=== PATIENT | male | born 1995 | race Caucasian/White ===

== ENCOUNTER 2017-05-07 03:56 | Emergency (ER) | payer BC, OTHER ==
[2017-05-07 04:06] VITALS: BP 140/92; PULSE 94; RESP 18; TEMP 97.9; O2SAT 98
--- NOTE | 2017-05-07 04:19 | ED PDOC ---
Arrival/HPI - General Chief Complaint: ENT Problem Time Seen by Provider: 05/07/17 04:08 - History of Present Illness Narrative History of Present Illness (Text): 05/07/17 04:16 This patient is a 21yo M who is coming to the ER for a 1d history of L Ear pain. Patient states that he has had ear infections in the past that feel exactly like this. Admits to mild fever at home and pain in the ear especially when it is manipulated. Denies pus/discharge from ear. Denies swimming in pool recently. Denies recent travel. Denies changes in vision, voice/hot potato voice /cough/throat pain, neck pain, SOB, abdominal pain, N/V/D, dysuria/freq/urg, or lower extremity pain/swelling. Former smoker, quit 8 months ago. Denies all other drug use. (Ozzie White) Past Medical History - Provider Review Nursing Documentation Reviewed: Yes - Travel History Have you recently traveled outside [place] w/in the past 3 mons?: No - Past History Past History: No Previous - Infectious Disease Hx of Infectious Diseases: None - Tetanus Immunization Tetanus Immunization: Unknown - Cardiac Hx Cardiac Disorders: Yes Hx Cardiac Arrhythmia: Yes - Psychiatric Hx Substance Use: No - Anesthesia Hx Anesthesia: No Hx Anesthesia Reactions: No Hx Malignant Hyperthermia: No Family/Social History - Physician Review Nursing Documentation Reviewed: Yes Family/Social History: No Known Family HX Smoking Status: Former Smoker Hx Alcohol Use: Yes Frequency of alcohol use: Socially Hx Substance Use: No Allergies/Home Meds Allergies/Adverse Reactions: Allergies No Known Allergies Allergy (Verified 03/05/16 19:58) Review of Systems - Review of Systems Constitutional: absent: Fatigue, Weight Change Eyes: absent: Vision Changes ENT: Hearing Changes (in left ear), TMJ Pain. absent: Voice Changes, Sore Throat, Rhinorrhea, Epistaxis, Sinus Congestion Respiratory: absent: SOB, Cough Cardiovascular: absent: Chest Pain, Palpitations Gastrointestinal: absent: Abdominal Pain Genitourinary Male: absent: Dysuria, Frequency Musculoskeletal: absent: Arthralgias, Back Pain Skin: absent: Rash, Pruritis Neurological: absent: Headache, Dizziness Endocrine: absent: Diaphoresis, Polyuria Hemo/Lymphatic: absent: Adenopathy, Easy Bleeding Psychiatric: absent: Anxiety, Depression Physical Exam Temperature: Afebrile Blood Pressure: Normal Pulse: Regular Respiratory Rate: Normal Appearance: Positive for: Well-Appearing, Non-Toxic Pain Distress: None Mental Status: Positive for: Alert and Oriented X 3 - Systems Exam Head: Present: Atraumatic, Normocephalic Pupils: Present: PERRL Extroacular Muscles: Present: EOMI Conjunctiva: Present: Normal Ears: Present: Erythema (on left ), TM Bulging (on left). No: TM Perf Mouth: Present: Moist Mucous Membranes, Dry, Normal Tounge Pharnyx: Present: Normal. No: ERYTHEMA, EXUDATE, TONSILS ENLARGED, Peritonsilar Swelling, Uvular Deviation, Muffled/Hoarse Voice, Strider, Soft Palate/Uvular Edema Nose (Internal): Present: Normal Inspection Neck: Present: Normal Range of Motion. No: Meningeal Signs Respiratory/Chest: Present: Clear to Auscultation, Good Air Exchange. No: Respiratory Distress, Accessory Muscle Use, Wheezes, Decreased Breath Sounds Cardiovascular: Present: Regular Rate and Rhythm, Normal S1, S2. No: Murmurs Abdomen: Present: Normal Bowel Sounds. No: Tenderness, Distention Back: Present: Normal Inspection. No: CVA Tenderness Upper Extremity: Present: Normal Inspection, Normal ROM. No: Cyanosis, Edema Lower Extremity: Present: Normal Inspection. No: Edema, CALF TENDERNESS Neurological: Present: GCS=15, CN II-XII Intact, Speech Normal Skin: Present: Warm Psychiatric: Present: Alert, Oriented x 3 Vital Signs Temp Pulse Resp BP Pulse Ox 05/07/17 04:06 97.9 F 94 H 18 140/92 H 98 Medical Decision Making ED Course and Treatment: 05/07/17 04:20 Pt w/ normal VSS; L ear eythema w/ bulging TM DD: Otitis Media vs Effusion vs otitis externa (unlikely given no discharge) Plan -Tylenol -Ibuprofen -Amoxicillin Dispo and Reassess 05/07/17 04:24 Will send home with Amoxicillin 875 TID for 7d Pt to f/u with PMD Dr. Gracia in one week If symptoms get worse, patient cannot swallow/throat pain/swelling told to come back to ER (Ozzie White) Impression: Pt seen and evaluated with biomedical field service engineer. Pt presented to the Emergency department complaining of left ear pain. Aware and agree with HPI, clinical findings, plan, and management. Plan: -- Amoxil -- Tylenol -- Motrin -- Reassess and disposition (Harvinder Sears) - Medication Orders Current Medication Orders: Discontinued Medications Acetaminophen (Tylenol 325mg Tab) 975 mg PO STAT STA Stop: 05/07/17 04:15 Last Admin: 05/07/17 04:23 Dose: 975 mg MAR Pain/Vitals Document 05/07/17 04:23 SS (Rec: 05/07/17 04:23 SS [id number]) Pain Reassessment Is This A Pain ReAssessment? No Presence of Pain Presence of Pain Yes Amoxicillin (Amoxil 500 Mg Cap) 500 mg PO STAT STA PRN Reason: Protocol Stop: 05/07/17 04:16 Last Admin: 05/07/17 04:23 Dose: 500 mg Ibuprofen (Motrin Tab) 600 mg PO STAT STA Stop: 05/07/17 04:15 Last Admin: 05/07/17 04:23 Dose: 600 mg MAR Pain/Vitals Document 05/07/17 04:23 SS (Rec: 05/07/17 04:23 SS [id number]) Pain Reassessment Is This A Pain ReAssessment? No Sleep Is patient sleeping during reassessment? No Presence of Pain Presence of Pain Yes Pain Scale Used Pain Scale Used Numeric Location Left, Right or Bilateral Left Pain Location Body Site Ear Intensity 8 Scale Used Numeric Disposition/Present on Arrival - Present on Arrival Any Indicators Present on Arrival: No History of DVT/PE: No History of Uncontrolled Diabetes: No Urinary Catheter: No History of Decub. Ulcer: No History Surgical Site Infection Following: None - Disposition Have Diagnosis and Disposition been Completed?: Yes Disposition Time: 04:25 Patient Plan: Discharge - Disposition Diagnosis: Otitis media Disposition: HOME/ ROUTINE Condition: FAIR Discharge Instructions (ExitCare): Otitis Media (ED) Additional Instructions: Please take your antibiotics as prescribed; Amoxicillin three times per day for 7 days. Do not miss doses and finish until all pills are taken You can take tylenol and ibuprofen, alternating, for pain/fevers as indicated on the bottles over the counter please follow up with your PMD within the week If you have trouble swallowing, muffled speech, or excessive drooling/trouble swallowing secretions please come back to the ED. It was a pleasure taking care of you, please feel better. Prescriptions: Amoxicillin 875 mg PO TID 7 Days #21 tablet Forms: [employer] (Georgian)
== END 2017-05-07 04:43 | disposition home or self-care (01) ==
LOC: ED 03:56
DX: H66.92 Otitis media, unspecified, left ear (principal); Z87.891 Personal history of nicotine dependence

== ENCOUNTER 2017-05-07 22:29 | Emergency (ER) | payer OTHER ==
[2017-05-07 22:53] VITALS: BMI 38.4
[2017-05-07] MEDS ORDERED: Sodium Chloride 0.9% 1,000 ML IV STA (23:29)
[2017-05-07] MEDS ORDERED: cefTRIAXone 1 gm 1 GM/100 ML BAG IVPB STA (23:33)
--- NOTE | 2017-05-07 23:38 | ED PDOC ---
Arrival/HPI - General Chief Complaint: ENT Problem Time Seen by Provider: 05/07/17 23:26 - History of Present Illness Narrative History of Present Illness (Text): 05/07/17 23:34 This patient was seen by myself yesterday for the same problem, he is a 21yo M who is coming to the ER for a 2d history of L Ear pain, now with pain in his neck and trouble swallowing. Admits to mild fever at home and pain in the ear especially when it is manipulated, and chills. Denies pus/discharge from ear. Denies swimming in pool recently. Denies recent travel. Denies changes in vision , voice/hot potato voice/cough/throat pain, SOB, abdominal pain, N/V/D, dysuria/ freq/urg, or lower extremity pain/swelling. Former smoker, quit 8 months ago. Denies all other drug use. (Ozzie White) Past Medical History - Past History Past History: No Previous - Infectious Disease Hx of Infectious Diseases: None - Tetanus Immunization Tetanus Immunization: Unknown - Cardiac Hx Cardiac Disorders: Yes Hx Cardiac Arrhythmia: Yes - Pulmonary Hx Respiratory Disorders: No - Neurological Hx Neurological Disorder: No - HEENT Hx HEENT Disorder: No - Renal Hx Renal Disorder: No - Endocrine/Metabolic Hx Endocrine Disorders: No - Hematological/Oncological Hx Blood Disorders: No - Integumentary Hx Dermatological Disorder: No - Musculoskeletal/Rheumatological Hx Musculoskeletal Disorders: No - Gastrointestinal Hx Gastrointestinal Disorders: No - Genitourinary/Gynecological Hx Genitourinary Disorders: No - Psychiatric Hx Psychophysiologic Disorder: No Hx Substance Use: No - Anesthesia Hx Anesthesia: No Hx Anesthesia Reactions: No Hx Malignant Hyperthermia: No Family/Social History - Physician Review Nursing Documentation Reviewed: Yes Family/Social History: No Known Family HX Smoking Status: Former Smoker Hx Alcohol Use: Yes Hx Substance Use: No Allergies/Home Meds Allergies/Adverse Reactions: Allergies almond Allergy (Verified 05/07/17 22:51) ANAPHYLAXIS Review of Systems - Review of Systems Constitutional: absent: Fatigue, Weight Change Eyes: absent: Vision Changes ENT: Hearing Changes, TMJ Pain. absent: Tinnitus, Voice Changes, Sore Throat, Rhinorrhea, Epistaxis Respiratory: absent: SOB, Cough, Sputum Cardiovascular: absent: Chest Pain, Palpitations Gastrointestinal: absent: Abdominal Pain Genitourinary Male: absent: Dysuria, Frequency Musculoskeletal: absent: Arthralgias, Back Pain Skin: absent: Rash, Pruritis Neurological: Headache. absent: Dizziness Endocrine: absent: Diaphoresis Hemo/Lymphatic: absent: Adenopathy Psychiatric: absent: Anxiety, Depression Physical Exam Temperature: Febrile Blood Pressure: Normal Pulse: Tachycardic Respiratory Rate: Normal Appearance: Positive for: Ill-Appearing Pain Distress: Mild Mental Status: Positive for: Alert and Oriented X 3 - Systems Exam Head: Present: Atraumatic Pupils: Present: PERRL Extroacular Muscles: Present: EOMI Conjunctiva: Present: Normal Mouth: Present: Moist Mucous Membranes Pharnyx: No: ERYTHEMA, EXUDATE, TONSILS ENLARGED, Peritonsilar Swelling, Uvular Deviation, Muffled/Hoarse Voice, Strider, Soft Palate/Uvular Edema Neck: Present: Normal Range of Motion, Lymphadenopathy (large painful submandibular lymph node that is warm and hard to touch), Trachea Midline Respiratory/Chest: Present: Clear to Auscultation, Good Air Exchange Cardiovascular: Present: Regular Rate and Rhythm, Tachycardic. No: Murmurs, Normal S1, S2 Abdomen: No: Tenderness, Distention Upper Extremity: Present: Normal Inspection. No: Cyanosis, Edema Lower Extremity: Present: Normal Inspection Neurological: Present: GCS=15 Skin: Present: Warm Psychiatric: Present: Alert, Oriented x 3 Vital Signs Temp Pulse Resp BP Pulse Ox 05/08/17 01:58 99.9 F H 05/08/17 00:32 102.8 F H 05/08/17 00:20 102.8 F H 96 H 20 144/75 100 05/07/17 22:52 99 F 120 H 18 132/78 98 Medical Decision Making ED Course and Treatment: Patient Seen With Resident: In agreement with resident note which contains more details about the patient. Patient was seen and evaluated with resident. Came up with plan and treatment together. (Bee Conn) 05/07/17 23:38 DD: peritonsillar abscess vs retropharyngeal abscess vs viral sialadenitis vs middle ear infection vs mastoiditis CBC CMP VBG Lactate Blood cultures Ceftriaxone 1g 1L NS; will give one more after bag is done CT Neck/Mastoid w/ contrast to evaluate for abscess dispo and reassess 05/08/17 00:37 Lact 1.2 Fever 102 in ER 1L NS extra hanging Pending CT scan 05/08/17 01:09 Will give decadron 10mg IV Pending CT scan No elevated WBC but predom neutrophilia 05/08/17 01:12 IMPRESSION: 1. No acute findings. 2. Non-acute findings are described above. CT scan only showed mildly enlarged lymph nodes no peritonsillar abscess seen Will send the patient home on Augmentin 875-125 for 10 days patient states he does not feel like he has any trouble swallowing, and fevers/ chills have subsided advised patient to throw out amoxicillin that he filled yesterday and take augmentin; and that he received ceftriaxone here in the ED today The patient is stable for d/c as per Dr. Conn 05/08/17 02:12 (Ozzie White) - Lab Interpretations Lab Results: 05/07/17 23:40 05/07/17 23:40 Lab Results 05/07/17 23:40: Sodium 142, Chloride 105, Potassium 4.3, Carbon Dioxide 25, Anion Gap 16, BUN 13, Creatinine 0.7 L, Est GFR ( Amer) > 60, Est GFR ( Non-Af Amer) > 60, Random Glucose 86, Calcium 9.2, Total Bilirubin 0.6, AST 37, ALT 63 H, Alkaline Phosphatase 49, Total Protein 7.6, Albumin 4.2, Globulin 3.5 , Albumin/Globulin Ratio 1.2 05/07/17 23:40: pO2 43, VBG pH 7.38, VBG pCO2 48.0, VBG HCO3 28.4 H, VBG Total CO2 29.9 H, VBG O2 Sat (Calc) 82.5 H, VBG Base Excess 2.5 H, VBG Potassium 4.2, Sodium 139.0, Chloride 106.0, Glucose 86, Lactate 1.2, FiO2 21.0, Venous Blood Potassium 4.2 05/07/17 23:40: WBC 8.7, RBC 4.84, Hgb 14.2, Hct 42.1, MCV 87.0, MCH 29.3, MCHC 33.7, RDW 12.7, Plt Count 253, MPV 9.9, Gran % 76.8 H, Lymph % (Auto) 15.9 L, [place] % (Auto) 5.6, Eos % (Auto) 1.5, Baso % (Auto) 0.2, Gran # 6.71 H, Lymph # 1.4, [place] # 0.5, Eos # 0.1, Baso # 0.02 - RAD Interpretation Radiology Orders: 05/07/17 23:30 NECK SOFT TISSUE W/CONTRAST [CT] Stat - Medication Orders Current Medication Orders: Discontinued Medications Acetaminophen (Tylenol 325mg Tab) 975 mg PO STAT STA Stop: 05/08/17 00:27 Last Admin: 05/08/17 00:32 Dose: 975 mg MAR Pain/Vitals Document 05/08/17 00:32 YP (Rec: 05/08/17 00:32 [facility] [id number] Vitals Temperature (97.6 F-99.6 F) 102.8 F Temperature Source Oral Dexamethasone (Decadron Inj) 10 mg IVP STAT STA Stop: 05/08/17 01:07 Last Admin: 05/08/17 01:32 Dose: 10 mg IVP Administration Document 05/08/17 01:32 SS (Rec: 05/08/17 01:32 SS [id number]) Charges for Administration # of IVP Administrations 1 Sodium Chloride (Sodium Chloride 0.9%) 1,000 mls @ 999 mls/hr IV .Q1H1M STA Stop: 05/08/17 00:29 Last Admin: 05/07/17 23:47 Dose: 999 mls/hr eMAR Start Stop Document 05/07/17 23:47 YP (Rec: 05/07/17 23:47 YP [facility] [id number]) Intravenous Solution Start Date 05/07/17 Start Time 23:47 End Date 05/08/17 End time 00:47 Total Infusion Time 60 Ceftriaxone Sodium (Rocephin 1 Gram Ivpb) 1 gm in 100 mls @ 200 mls/hr IVPB STAT STA PRN Reason: Protocol Stop: 05/08/17 00:02 Last Admin: 05/08/17 00:37 Dose: 200 mls/hr eMAR Start Stop Document 05/08/17 00:37 SS (Rec: 05/08/17 00:37 SS [id number]) Intravenous Solution Start Date 05/08/17 Start Time 00:37 End Date 05/08/17 End time 01:07 Total Infusion Time 30 Sodium Chloride (Sodium Chloride 0.9%) 1,000 mls @ 999 mls/hr IV .Q1H1M STA Stop: 05/08/17 01:27 Last Admin: 05/08/17 00:32 Dose: 999 mls/hr eMAR Start Stop Document 05/08/17 00:32 YP (Rec: 05/08/17 00:32 YP [id number]) Intravenous Solution Start Date 05/08/17 Start Time 00:32 End Date 05/08/17 End time 01:32 Total Infusion Time 60 Disposition/Present on Arrival - Present on Arrival Any Indicators Present on Arrival: No History of DVT/PE: No History of Uncontrolled Diabetes: No Urinary Catheter: No History of Decub. Ulcer: No History Surgical Site Infection Following: None - Disposition Have Diagnosis and Disposition been Completed?: Yes Disposition Time: 02:14 Patient Plan: Discharge - Disposition Diagnosis: Sialadenitis Disposition: HOME/ ROUTINE Patient Problems: Current Active Problems Problem Status Onset Sialadenitis Acute Condition: FAIR Additional Instructions: Please throw out your Amoxicillin and fill the Augmentin prescription you received today You received Ceftriaxone here in the emergency room, and will need to take augmentin starting tomorrow If you have trouble swallowing, breathing, and are choking on your saliva please come back to the ER Please feel better. It was a pleasure treating you. Prescriptions: Amoxicillin/Clavulanate [Augmentin 875 MG-125 MG] 1 tab PO BID 7 Days #14 tab Forms: [employer] (Frisian)
[2017-05-08 00:13] LABS: VENOUS BLOOD GAS BASE EXCESS 2.5 mmol/L (0.0-2.0); VENOUS BLOOD PH 7.38 (7.32-7.43)
[2017-05-08 00:15] LABS: ALB/GLOB RATIO 1.2 (1.1-1.8); ALKALINE PHOSPHATASE 49 U/L (38-126); ALT/SGPT 63 U/L (7-56); AST/SGOT 37 U/L (17-59); BILIRUBIN,TOTAL 0.6 mg/dL (0.2-1.3); BLOOD UREA NITROGEN 13 mg/dL (7-21); CARBON DIOXIDE 25 mmol/L (21-33); GFR AFRICAN-AMERICAN > 60; GLUCOSE,RANDOM 86 mg/dL (70-110); TOTAL PROTEIN 7.6 g/dL (5.8-8.3)
[2017-05-08 00:18] LABS: BASO # 0.02 K/mm3 (0.0-2.0); BASO % 0.2 % (0.0-3.0); EOS # 0.1 (0.0-0.7); EOS % 1.5 % (1.5-5.0); GRAN # 6.71 (1.4-6.5); GRAN % 76.8 % (50.0-68.0); HEMATOCRIT 42.1 % (42.0-52.0); LYMPH # 1.4 (1.2-3.4); LYMPH % 15.9 % (22.0-35.0); MEAN CORPUSCULAR HEMOGLOBIN 29.3 pg (25.0-35.0); MEAN CORPUSCULAR HGB CONC 33.7 g/dl (31.0-37.0); MEAN PLATELET VOLUME 9.9 fl (7.0-11.0); MONO # 0.5 (0.1-0.6); MONO % 5.6 % (1.0-6.0); RED CELL DISTRIBUTION WIDTH 12.7 % (11.5-14.5); WHITE BLOOD COUNT 8.7 10^3/ul (4.5-11.0)
[2017-05-08 00:21] VITALS: RESP 20
[2017-05-08] MEDS ORDERED: Sodium Chloride 0.9% 1,000 ML IV STA (00:27)
[2017-05-08 00:46] LABS: CALCIUM 9.2 mg/dL (8.4-10.5); CHLORIDE 105 mmol/L (98-107); POTASSIUM 4.3 mmol/L (3.6-5.0); SODIUM 142 mmol/L (132-148)
[2017-05-08 01:59] VITALS: TEMP 99.9
--- NOTE | 2017-05-08 02:09 | CT ---
EXAM: CT Neck With Intravenous Contrast CLINICAL HISTORY: 21 years old, male; Signs and symptoms; Enlarged lymph nodes; Additional info: Neck swelling TECHNIQUE: Axial computed tomography images of the neck with intravenous contrast. All CT scans at this facility use one or more dose reduction techniques, viz.: automated exposure control; ma/kV adjustment per patient size (including targeted exams where dose is matched to indication; i.e. head); or iterative reconstruction technique. Coronal and sagittal reformatted images were created and reviewed. CONTRAST: 146 mL of omni 350 administered intravenously. COMPARISON: No relevant prior studies available. FINDINGS: Nasopharynx: Unremarkable. Oropharynx: No significant tonsillar enlargement. No peritonsillar abscess. Hypopharynx: Unremarkable. Larynx: Unremarkable. Normal epiglottis. Trachea: Unremarkable. Retropharyngeal space: Unremarkable. Submandibular/parotid glands: Several subcentimeter short axis cervical lymph nodes. Few probable subcentimeter short axis intraparotid lymph nodes. Thyroid: Unremarkable. No enlarged or calcified nodules. Bones/joints: No acute fracture. Soft tissues: Unremarkable. Vasculature: No acute findings. Lymph nodes: See above. Sinuses: Scattered minimal mucosal thickening. No air-fluid levels. Mastoid air cells: No mastoid effusion. Lung apices: Unremarkable as visualized. IMPRESSION: 1.No acute findings. 2.Non-acute findings are described above.
[2017-05-08 02:27] VITALS: BP 117/60; PULSE 82; O2SAT 99
== END 2017-05-08 02:27 | disposition home or self-care (01) ==
LOC: ED 22:29
DX: K11.20 Sialoadenitis, unspecified (principal); Z87.891 Personal history of nicotine dependence
CPT/HCPCS: 70491; 80053; 82803; 85025; 86308; 87040; 96361; 96365; 96375; 99283; J0696; J1100; J7040; Q9967

== ENCOUNTER 2018-04-07 15:56 | Emergency (ER) | payer MEDICAID, OTHER ==
[2018-04-07 16:15] VITALS: BMI 40.8
[2018-04-07] MEDS ORDERED: Albuterol-Ipratrop 3 mg / 0.5 (3 ml) UD IH STA (16:30)
--- NOTE | 2018-04-07 16:47 | ED PDOC ---
Arrival/HPI - General Chief Complaint: Shortness Of Breath Time Seen by Provider: 04/07/18 16:19 Historian: Patient - History of Present Illness Narrative History of Present Illness (Text): 04/07/18 16:44 22yo morbidly obese male with no pmhx who present with complaint of cough and SOB with exertion x 4days. states he saw his pmd and was given steroid injection, albuterol inhaler, antibiotics and antitussive. States he is still taking these medications but still having symptoms. He smokes tobacco. Denies fever, chills, chest pain, diaphoresis, sick contact, travel, any other complaint. Past Medical History - Provider Review Nursing Documentation Reviewed: Yes - Past History Past History: No Previous - Infectious Disease Hx of Infectious Diseases: None - Tetanus Immunization Tetanus Immunization: Unknown - Cardiac Hx Cardiac Disorders: Yes Hx Cardiac Arrhythmia: Yes - Pulmonary Hx Respiratory Disorders: Yes Hx Asthma: Yes - Neurological Hx Neurological Disorder: No - HEENT Hx HEENT Disorder: No - Renal Hx Renal Disorder: No - Endocrine/Metabolic Hx Endocrine Disorders: No - Hematological/Oncological Hx Blood Disorders: No - Integumentary Hx Dermatological Disorder: No - Musculoskeletal/Rheumatological Hx Musculoskeletal Disorders: No - Gastrointestinal Hx Gastrointestinal Disorders: No - Genitourinary/Gynecological Hx Genitourinary Disorders: No - Psychiatric Hx Psychophysiologic Disorder: No Hx Substance Use: No - Anesthesia Hx Anesthesia: No Hx Anesthesia Reactions: No Hx Malignant Hyperthermia: No Family/Social History - Physician Review Nursing Documentation Reviewed: Yes Family/Social History: Unknown Family HX Smoking Status: Current Some Days Smoker Hx Alcohol Use: Yes Hx Substance Use: No Allergies/Home Meds Allergies/Adverse Reactions: Allergies almond Allergy (Verified 04/07/18 16:14) ANAPHYLAXIS Review of Systems - Physician Review All systems were reviewed & negative as marked: Yes - Review of Systems Constitutional: Normal Eyes: Normal ENT: Normal Respiratory: SOB, Cough. absent: Sputum, Wheezing Cardiovascular: Normal Gastrointestinal: Normal Genitourinary Male: Normal Musculoskeletal: Normal Skin: Normal Neurological: Normal Endocrine: Normal Hemo/Lymphatic: Normal Psychiatric: Normal Physical Exam Vital Signs Reviewed: Yes Vital Signs Temp Pulse Resp BP Pulse Ox 04/07/18 16:15 98.0 F 95 H 20 129/86 97 Temperature: Afebrile Blood Pressure: Normal Pulse: Regular Respiratory Rate: Normal Appearance: Positive for: Well-Appearing, Non-Toxic, Comfortable Pain Distress: None Mental Status: Positive for: Alert and Oriented X 3 - Systems Exam Head: Present: Atraumatic, Normocephalic Pupils: Present: PERRL Extroacular Muscles: Present: EOMI Conjunctiva: Present: Normal Mouth: Present: Moist Mucous Membranes Neck: Present: Normal Range of Motion Respiratory/Chest: Present: Clear to Auscultation, Good Air Exchange, Other (Diffuse coarse BS). No: Respiratory Distress, Accessory Muscle Use, Wheezes, Decreased Breath Sounds, Rales, Retracting, Rhonchi, Tachypneic Cardiovascular: Present: Regular Rate and Rhythm, Normal S1, S2. No: Murmurs Abdomen: No: Tenderness, Distention, Peritoneal Signs Back: Present: Normal Inspection Upper Extremity: Present: Normal Inspection. No: Cyanosis, Edema Lower Extremity: Present: Normal Inspection. No: Edema Neurological: Present: GCS=15, CN II-XII Intact, Speech Normal Skin: Present: Warm, Dry, Normal Color. No: Rashes Psychiatric: Present: Alert, Oriented x 3, Normal Insight, Normal Concentration Medical Decision Making ED Course and Treatment: 04/07/18 17:36 Pt presented for stated history. He was not hypoxic. In no distress. He had coarse bs b/l. He was treated with Duoneb in ED. Pt is already on antibiotic, albuterol and antitussive at home. Result was DW the pt. He was counseled on smoking cessation Advised to continue with the medications given by his PMD TRT ED for worsening symptoms - RAD Interpretation Radiology Orders: 04/07/18 16:30 CHEST TWO VIEWS (PA/LAT) [RAD] Stat - Medication Orders Current Medication Orders: Discontinued Medications Albuterol/Ipratropium (Duoneb 3 Mg/0.5 Mg (3 Ml) Ud) 3 ml IH Q15M STA Stop: 04/07/18 16:31 Last Admin: 04/07/18 16:59 Dose: 3 ml Disposition/Present on Arrival - Present on Arrival Any Indicators Present on Arrival: No History of DVT/PE: No History of Uncontrolled Diabetes: No Urinary Catheter: No History of Decub. Ulcer: No History Surgical Site Infection Following: None - Disposition Have Diagnosis and Disposition been Completed?: Yes Diagnosis: Cough Disposition: HOME/ ROUTINE Disposition Time: 17:40 Patient Plan: Discharge Condition: STABLE Discharge Instructions (ExitCare): Cough in Adults Additional Instructions: continue with your medications Return to ED for any new or worsening symptoms Referrals: Nick Gracia MD [Primary Care Provider] - Follow up with primary Forms: [employer] (Tajik)
--- NOTE | 2018-04-07 17:28 | RAD ---
Date of service: 04/07/2018 HISTORY: cough COMPARISON: Chest radiograph dated 03/06/2016 TECHNIQUE: Chest PA and lateral FINDINGS: LUNGS: No active pulmonary disease. PLEURA: No significant pleural effusion identified. No pneumothorax apparent. CARDIOVASCULAR: Normal. OSSEOUS STRUCTURES: No significant abnormalities. VISUALIZED UPPER ABDOMEN: Normal. OTHER FINDINGS: None. IMPRESSION: No active disease.
[2018-04-07 18:12] VITALS: O2SAT 98
[2018-04-07 18:13] VITALS: BP 125/85; PULSE 87; RESP 18; TEMP 98
== END 2018-04-07 18:13 | disposition home or self-care (01) ==
LOC: ED 15:56
DX: R05 Cough (principal)

== ENCOUNTER 2018-12-11 10:38 | Emergency (ER) | payer MEDICAID ==
[2018-12-11 10:43] VITALS: BP 129/83; PULSE 112; RESP 18; TEMP 98.2; O2SAT 96; BMI 38.7
[2018-12-11 13:10] LABS: URINE BILIRUBIN NEGATIVE (NEGATIVE); URINE BLOOD NEGATIVE (NEGATIVE); URINE GLUCOSE (UA) NEGATIVE (NEGATIVE); URINE LEUKOCYTE ESTERASE NEGATIVE Leu/uL (NEGATIVE); URINE PROTEIN TRACE mg/dL (<30 mg/dL)
[2018-12-11 13:11] LABS: URINE APPEARANCE SL CLOUDY (CLEAR); URINE COLOR YELLOW (YELLOW)
--- NOTE | 2018-12-11 13:15 | ED PDOC ---
Arrival/HPI - General Chief Complaint: Flu-like Symptoms Time Seen by Provider: 12/11/18 12:26 Historian: Patient - History of Present Illness Narrative History of Present Illness (Text): 12/11/18 13:09 22 year old M with no significant pmh presents complaining of L arm pain. Patient reports he has been on a 3 day fast to lose weight and was dizzy yesterday. He denies taking any medications for relief, numbness, tangling, loss of sensation to extremities or decreased motor street light wirer strength. He mentions pain has resolved since arriving to Emergency department Symptom Onset: Sudden Symptom Course: Unchanged Activities at Onset: Light Context: Home Past Medical History - Provider Review Nursing Documentation Reviewed: Yes - Past History Past History: No Previous - Infectious Disease Hx of Infectious Diseases: None - Tetanus Immunization Tetanus Immunization: Unknown - Cardiac Hx Cardiac Disorders: Yes Hx Cardiac Arrhythmia: Yes - Pulmonary Hx Respiratory Disorders: No - Neurological Hx Neurological Disorder: No - HEENT Hx HEENT Disorder: No - Renal Hx Renal Disorder: No - Endocrine/Metabolic Hx Endocrine Disorders: No - Hematological/Oncological Hx Blood Disorders: No - Integumentary Hx Dermatological Disorder: No - Musculoskeletal/Rheumatological Hx Musculoskeletal Disorders: No - Gastrointestinal Hx Gastrointestinal Disorders: No - Genitourinary/Gynecological Hx Genitourinary Disorders: No - Psychiatric Hx Psychophysiologic Disorder: No Hx Substance Use: No - Anesthesia Hx Anesthesia: No Hx Anesthesia Reactions: No Hx Malignant Hyperthermia: No Family/Social History - Physician Review Nursing Documentation Reviewed: Yes Family/Social History: Unknown Family HX Smoking Status: Light Smoker < 10 Cigarettes Daily Hx Alcohol Use: Yes Frequency of alcohol use: Socially Hx Substance Use: No Allergies/Home Meds Allergies/Adverse Reactions: Allergies almond Allergy (Verified 12/11/18 12:35) ANAPHYLAXIS Home Medications: Home Meds Medication Instructions Recorded Confirmed No Known Home Med 12/11/18 12/11/18 Review of Systems - Physician Review All systems were reviewed & negative as marked: Yes - Review of Systems Constitutional: absent: Fevers ENT: absent: Sore Throat, Rhinorrhea Respiratory: absent: SOB, Cough, Wheezing Cardiovascular: absent: Chest Pain, Palpitations Gastrointestinal: absent: Abdominal Pain, Constipation, Diarrhea, Nausea, Vomiting, Hematochezia, Hematemesis Genitourinary Male: absent: Dysuria, Hematuria Musculoskeletal: Arthralgias (left arm ) Skin: absent: Rash Physical Exam Vital Signs Reviewed: Yes Vital Signs Temp Pulse Resp BP Pulse Ox 12/11/18 10:41 98.2 F 112 H 18 129/83 96 Temperature: Afebrile Blood Pressure: Normal Pulse: Regular Respiratory Rate: Normal Appearance: Positive for: Well-Appearing, Non-Toxic, Comfortable Pain Distress: None Mental Status: Positive for: Alert and Oriented X 3 - Systems Exam Head: Present: Atraumatic, Normocephalic Respiratory/Chest: Present: Clear to Auscultation, Good Air Exchange. No: Respiratory Distress, Accessory Muscle Use Cardiovascular: Present: Regular Rate and Rhythm, Normal S1, S2. No: Murmurs Upper Extremity: Present: Normal Inspection, NORMAL PULSES, Neurovascularly Intact, Other (Able to abduct and adduct fingers). No: Cyanosis, Edema, Swelling, Erythema Medical Decision Making ED Course and Treatment: 12/11/18 13:15 Impression: 22 year old M presents complaining of L arm pain Plan: -- Toradol -- Urinalysis -- Reassess and disposition Progress Notes: - Lab Interpretations Lab Results: Lab Results 12/11/18 12:35: Total Creatine Kinase 64 12/11/18 12:35: Urine Color Yellow, Urine Appearance Sl cloudy, Urine pH 6.0, Ur Specific [place] >= 1.030, Urine Protein Trace H, Urine Glucose (UA) Negative, Urine Ketones Trace H, Urine Blood Negative, Urine Nitrate Negative, Urine Bilirubin Negative, Urine Urobilinogen 1.0 H, Ur Leukocyte Esterase Negative, Urine RBC None, Urine WBC None, Uric Acid Crystals Few I have reviewed the lab results: Yes - Medication Orders Current Medication Orders: Discontinued Medications Ketorolac Tromethamine (Toradol) 60 mg IM STAT STA Stop: 12/11/18 12:33 Last Admin: 12/11/18 12:37 Dose: 60 mg MAR Pain Assessment Document 12/11/18 12:37 EWO (Rec: 12/11/18 12:37 [id number]) Pain Reassessment Is this a pain reassessment? No Sleep Is patient sleeping during reassessment? No IM Administration Charges Document 12/11/18 12:37 EWO (Rec: 12/11/18 12:37 EWO [id number]) Injection Site MAR Injection Site Left Deltoid Charges for Administration # of IM Administrations 1 - Scribe Statement The provider has reviewed the documentation as recorded by the Scribe Major Persaud All medical record entries made by the Scribe were at my direction and personally dictated by me. I have reviewed the chart and agree that the record accurately reflects my personal performance of the history, physical exam, medical decision making, and the department course for this patient. I have also personally directed, reviewed, and agree with the discharge instructions and disposition. Disposition/Present on Arrival - Present on Arrival Any Indicators Present on Arrival: No History of DVT/PE: No History of Uncontrolled Diabetes: No Urinary Catheter: No History of Decub. Ulcer: No History Surgical Site Infection Following: None - Disposition Have Diagnosis and Disposition been Completed?: Yes Diagnosis: Musculoskeletal arm pain Disposition: HOME/ ROUTINE Disposition Time: 13:25 Patient Plan: Discharge Condition: IMPROVED Discharge Instructions (ExitCare): Muscle Strain (DC) Print Language: IRANIAN Additional Instructions: All medical record entries made by the Scribe were at my direction and per sonally dictated by me. I have reviewed the chart and agree that the record accurately reflects my personal performance of the history, physical exam, medical decision making, and the department course for this patient. I have also personally directed, reviewed, and agree with the discharge instructions and disposition. Please continue to adequately hydrate and eat small meals You may take Motrin every SIX hours WITH food for pain Referrals: Nick Gracia MD [Primary Care Provider] - Follow up with primary Forms: [facility] (Uzbek), WORK NOTE
[2018-12-11 13:21] LABS: URINE URIC ACID CRYSTALS FEW /hpf
[2018-12-11 13:26] LABS: BARBITURATES, UR NEGATIVE (NEGATIVE); BENZODIAZEPINES, UR POSITIVE (NEGATIVE); OPIATES, UR NEGATIVE (NEGATIVE); PHENCYCLIDINE, UR NEGATIVE (NEGATIVE)
== END 2018-12-11 13:37 | disposition home or self-care (01) ==
LOC: ED 10:38
DX: M79.602 Pain in left arm (principal); F17.210 Nicotine dependence, cigarettes, uncomplicated
CPT/HCPCS: 80324; 80345; 80346; 80349; 80353; 80358; 80361; 81001; 82550; 83992; 96372; 99283; J1885